=== PATIENT | male | born 1950 | race Caucasian/White ===

== ENCOUNTER 2017-03-06 19:47 | Emergency (ER) | payer MEDICARE ==
[~2017-03-06] VITALS: Ht 177.8 cm; Wt 72.7 kg
[~2017-03-06 19:47] MED LIST: ACET1TAB12 PO; ALPR.25T PO; BUPR200T2 PO; BUSP10TA2 PO; CHOL400T41 PO; GLUC-125 PO; HYDR-4003 PO; MULT-892 PO; PROM25TA14 PO; [UNRECOGNIZED DRUG - OTHER] PO
[2017-03-06 19:50] VITALS: BP 112/75; PULSE 72; RESP 17; O2SAT 99
[2017-03-06 20:43] LABS: BASOPHILS % (AUTO) 0.3 % (0-3); EOSINOPHILS % (AUTO) 1.9 % (0-5); MONOCYTES % (AUTO) 11.9 % (4-12); Mean Corpuscular Hemoglobin 31.4 pg (27.0-35.0); Mean Corpuscular Volume 92.2 fL (81-100); NEUTROPHILS % (AUTO) 75.6 % (40-74); Platelet Count 156 bil/L (150-400)
[2017-03-06] MEDS ORDERED: Iohexol 300 mg/mL 30 mL Inj PO ONE (21:15)
[2017-03-06 21:17] LABS: Magnesium 2.1 mg/dL (1.6-2.6)
--- NOTE | 2017-03-06 21:30 | ED.REPORT ---
HPI-Abd Pain M 40 and Over Date of Service Mar 06, 2017 ED Provider: Dr. Richardson Pt is a 66 year old male with a hx of kidney stones presenting to the ED from complaining of intermittent sharp RLQ pain onset last night. Associated symptoms include nausea, subjective fever, chills, back pain (onset a couple weeks ago) and a decreased appetite. Denies any testicular pain, productive cough, or diaphoresis. He was sent for possible appendicitis. Denies any hx of abdominal surgery. Nursing Notes Stated Complaint: POSS APPENDICITIS Chief Complaint: Male Abdominal Pain Nursing Notes Reviewed: Yes Allergies: Coded Allergies: escitalopram (Verified Adverse Reaction, Severe, 03/06/17) dizziness per h&p Scheduled Acetaminophen/Cod-Expunged Drug, Do Not Renew (Tylenol/Codeine #3-Expunged Drug , Do Not Sandip) 1 Ea Tablet 1-2 TAB PO Q4HP Alprazolam-Expunged Drug, Do Not Renew! (Alprazolam-Expunged Drug, Do Not Renew! ) 0.25 Mg Tablet 0.25 MG PO TIDP Bupropion-Expunged Drug, Do Not Renew! (Bupropion SR-Expunged Drug, Do Not Renew !) 200 Mg Tablet.sa 200 MG PO DAILY Buspirone (Buspirone) 10 Mg Tablet 10 MG PO BID CHOLECALCIFEROL-Expunged Drug, Do Not Renew! (VITAMIN D-Expunged Drug, Do Not Renew!) 400 Unit Tablet 1,000 UNIT PO DAILY Gluc/Julián-Msm#3/Justino/Bosw/Bor (Glucosamine Chondroitin Sftgl) 1 Each Capsule 1 EACH PO DAILY Multivitamin (Daily Value) 1 Each Tablet 1 EACH PO DAILY Scheduled PRN Acetaminophen/Codeine 300-30mg (Tylenol/Codeine #3) 1 Each Tablet 1-2 TABLET PO Q4H PRN PRN Pain Acetaminophen/Codeine 300-30mg (Tylenol/Codeine #3) 1 Each Tablet 1-2 TABLET PO Q4H PRN PRN Pain Hydrocodone-Acetaminophen 5-325 mg (Hydrocodone-Acetaminophen 5-325 mg) 1 Each Tablet 1-2 TABLET PO Q4H PRN PRN For Pain Promethazine (Promethazine) 25 Mg Tablet 25 MG PO Q6H PRN PRN nausea or headache General Time Seen by MD: 21:29 Chief Complaint Abdominal pain Hx Obtained From: Patient Arrived By: Walk-in Sudden in Onset?: Yes Onset Occurred: Yesterday Symptom Duration: Intermittent Progression since Onset: Intermittent Location: : RLQ Quality: Painful, Sharp Severity: Current: Moderate Severity: Maximum: Severe Recent Healthcare: No recent hospitalization, Recent doctor visit Similar Sx Previous: No Past Medical History Past Medical History Notes: Last ED Visit for migraine 06/07/16 Past Medical History Infrequent migraines about every 2 months Anxiety Depression Kidney stones Past Surgical History Lithotripsy for kidney stone Prostate Bladder Paratyroidectomy Family History noncontributory Smoking History Never Smoker Social History Alcohol Use: Denies alcohol use Drug Use: Denies drug use Other Social History: Local resident Ambulatory Status Independent Review of Systems Constitutional: Reports: Chills, Fever Respiratory: Denies: Non-productive cough GI: Reports: Abdominal pain, Nausea, Denies: Vomiting Male: Denies Testicular pain Musculoskeletal: Reports: Back pain Complete sys rev & neg: except as marked. Skin: Denies Diaphoresis Physical Exam Initial Vital Signs Vital Signs (First) Date Time Temp Pulse Resp B/P Pulse Ox O2 Delivery O2 Flow Rate FiO2 03/06/17 19:50 36.4 72 17 112/75 99 Room Air Initial VS: Reviewed Head / Eyes: Atraumatic, Normocephalic, PERRL ENT: Mucous membranes moist, Conjunctiva normal, No scleral icterus Neck: Supple, Non-tender, Full range of motion Extremities: Vascular intact, Neuro intact, No swelling, No tenderness Skin: Warm, Dry, No cyanosis Neurologic: Alert, Oriented, Nonfocal Psychiatric: Mood/affect normal, Behavior normal, Normal thought content General/Constitutional: Awake, Alert, No acute distress, Well appearing Respiratory / Chest: Breath sounds NL, Breath sounds = bilat, No respiratory distress, No rales, No rhonchi, No wheezing Cardiovascular: Heart rate NL, Regular rhythm, Heart sounds NL, Peripheral circulation NL Abdomen: Atraumatic, Soft, Non-tender, No hernia Back: Atraumatic, Full range of motion Right flank tenderness Interpretation & Diagnostics Interpretation & Diagnostics: US APPENDIX: CONCLUSION: No ultrasound evidence of appendicitis. The appendix was not identified. Normal apearing right kidney. Lab Results Interpretation Result Diagram: 03/06/17203403/06/172034 Test 03/06/17 20:35 03/06/17 22:03 White Blood Count 5.9th/mm3 (3.8-10.1) Red Blood Count 5.23mil/mm3 (4.40-5.80) Hemoglobin 16.4g/dL (13.8-17.2) Hematocrit 48.2% (41.0-50.0) Mean Corpuscular Volume 92.2fL (81-100) Mean Corpuscular Hemoglobin 31.4pg (27.0-35.0) Mean Corpuscular Hemoglobin Concent 34.0% (32.0-37.0) Red Cell Distribution Width 12.9% (12.3-15.4) Platelet Count 156bil/L (150-400) Neutrophils (%) (Auto) 75.6% (40-74) Lymphocytes (%) (Auto) 10.1% (14-46) Monocytes (%) (Auto) 11.9% (4-12) Eosinophils (%) (Auto) 1.9% (0-5) Basophils (%) (Auto) 0.3% (0-3) Sodium Level 136mEq/L (134-144) Potassium Level 4.8mEq/L (3.5-5.2) Chloride Level 100mEq/L (97-108) Carbon Dioxide Level 23mmol/L (18-29) Blood Urea Nitrogen 18mg/dL (8-27) Creatinine 0.95mg/dL (0.76-1.27) Estimat Glomerular Filtration Rate 85mL/min (>59) Glucose Level 115mg/dL (60-99) Calcium Level 9.0mg/dL (8.5-10.1) Magnesium Level 2.1mg/dL (1.6-2.6) Total Bilirubin 0.5mg/dL (0.0-1.2) Aspartate Amino Transf (AST/SGOT) 30U/L (0-50) Alanine Aminotransferase (ALT/SGPT) 33U/L (0-44) Alkaline Phosphatase 81U/L (25-160) Total Protein 6.9g/dL (6.4-8.4) Albumin 4.1g/dL (3.4-5.0) Lipase 25U/L (13-60) Hold Rosen Top Tube Received (Received) Urine Color Straw (YELLOW) Urine Appearance Clear (CLEAR,HAZY) Urine pH 6.0 (5.0-8.0) Urine Specific [place] 1.009 (1.003-1.035) Urine Protein Negativemg/dL (NEG,TRACE) Urine Glucose (UA) Negativemg/dL (NEGATIVE) Urine Ketones Negativemg/dL (NEGATIVE) Urine Occult Blood Small (NEGATIVE) Urine Nitrite Negative (NEGATIVE) Urine Bilirubin Negative (NEGATIVE) Urine Urobilinogen Normalmg/dL (NORMAL) Urine Leukocyte Esterase Negative (NEGATIVE) Urine RBC 3-10/hpf (0-2) Urine WBC 0-5/hpf (0-5) Urine Epithelial Cells Occasional/hpf (NONE-MOD) Urine Crystals None seen (NONE SEEN) Urine Bacteria Few/hpf (NONE-FEW) Urine Hyaline Casts None/lpf (NONE) Urine Granular Casts None seen (NONE SEEN) Urine Waxy Casts None seen (NONE SEEN) Urine Red Blood Cell Casts None seen (NONE SEEN) Urine White Blood Cell Casts None seen (NONE SEEN) Urine Mucus Present (None Seen) Urine Trichomonas None seen (NONE SEEN) Urine Yeast None (NONE SEEN) Urinalysis Comment None Urine Culture Reflexed Not indicated Re-Eval/Medical Decision Med Decision/Clinical Course 66-year-old generally good health presents with flank pain. He has a history of kidney stones but does not feel this pain is particularly similar. He was sent with a concern for appendicitis, but he has a completely benign exam, his pain is resolved essentially by the time of arrival here, and he has no evidence of hydronephrosis or free fluid on the ultrasound. As he has no symptoms, normal white count, there is no indication for CT imaging at this time. He is discharged in stable condition for follow-up with PCP. Suspect the possibility of constipation, and I suggested to him that a single dose of milk of magnesia might be helpful in resolving his intermittent crampy symptoms. His urine is completely unremarkable to this point with no evidence of UTI. Time of Eval: 00:08 Patient Status: Condition improved Re-Evaluation/Progress Note: Discussed ultrasound results and plan for discharge. Pt understands and agrees with plan. Counseled Regarding: Diagnosis, Lab results, Need for follow-up, When/why to return to ED Discharge & Departure Primary Impression: Abdominal pain Abdominal location: right lower quadrant Qualified Code: R10.31 - Right lower quadrant pain Disposition: Home Vital Signs - All Vital Signs Date Time Temp Pulse Resp B/P Pulse Ox O2 Delivery O2 Flow Rate FiO2 03/06/17 22:10 36.6 74 138/79 99 Room Air 03/06/17 19:50 36.4 72 17 112/75 99 Room Air )( All Prior VS Reviewed: Yes Condition: Improved Patient Instructions: Acute Abdominal Pain (ED) Additional Instructions: There is no evidence for appendicitis at this time. Your ultrasound showed no free fluid, no obviously enlarged appendix, and normal appearing kidney. With abdominal pain in general, it is important to follow day by day. If this is resolving, then no further evaluation is necessary. If it returns and particularly if it stays, you may need to be reevaluated with blood lab and with a CAT scan. Start with a light liquid diet and then advance as tolerated. Return here promptly if you develop high fever, worsening pain, intractable vomiting, or other new symptoms of concern. Referrals: Neptali Mancia MD (PCP) Scribe Attestation Portions of this note were transcribed by Paula Cash. I, Dr. Richardson personally performed the history, physical exam and medical decision-making; I reviewed and confirmed the accuracy of the information in the transcribed note. Signed by: Corey Gomez, 03/07/2017 at 0223. copies to: Neptali Mancia MD, Christopher W MD Mar 06, 2017 21:30 PAULA CASH Mar 06, 2017 21:31
[2017-03-06 22:10] VITALS: BP 138/79; PULSE 74; O2SAT 99
[2017-03-06 23:00] LABS: APPEARANCE,URINE CLEAR (CLEAR,HAZY); COLOR,URINE STRAW (YELLOW)
[2017-03-06 23:01] LABS: OCCULT BLOOD,URINE SMALL (NEGATIVE); UROBILINOGEN,URINE NORMAL (NORMAL)
--- NOTE | 2017-03-07 10:19 | DRSVH ---
PROCEDURE: US ABDOMEN, LIMITED ([id number]) INDICATIONS: poss rt hydro, referred for possible appy TECHNIQUE: Real-time focused scanning was performed of the abdomen, with image documentation. COMPARISON: None. FINDINGS: Limited evaluation of the right lower quadrant demonstrates no abnormalities. The appendi x is not clearly identified sonographically. No abnormal fluid collections or masses seen. Grossly normal appearance of the right kidney and no hydronephrosis is seen. IMPRESSION: 1. Appendix is not visualized and cannot be evaluated. Although no secondary signs for appendicitis is seen, appendicitis cannot be excluded. If indicated CT could be performed for further assessment. 2. Normal appearance the right kidney. Note: These findings are concordant with the preliminary interpretation. Dictated by: Luis Knight RR Interpreted: Steven Jones MD on 03/07/2017 at 10:15 Transcribed by: BARTOLOME on 03/07/2017 at 10:17 Approved by: Steven Jones M.D. on 03/07/2017 at 12:08
== END 2017-03-07 00:32 | disposition home or self-care (01) ==
LOC: SED 19:47
DX: R10.31 Right lower quadrant pain (principal); R50.9 Fever, unspecified; R11.0 Nausea; R63.0 Anorexia; M54.9 Dorsalgia, unspecified; F41.8 Other specified anxiety disorders; G43.909 Migraine, unspecified, not intractable, without status migrainosus; Z87.442 Personal history of urinary calculi; Z98.890 Other specified postprocedural states; Z88.8 Allergy status to other drugs, medicaments and biological substances

== ENCOUNTER 2017-04-05 07:13 | Day surgery (SDC) | payer MEDICARE ==
[~2017-04-05] VITALS: Ht 177.8 cm; Wt 72.6 kg
[~2017-04-05 07:13] MED LIST changes: +ALPH300T2 PO; -ALPR.25T PO; +ALPR0.5T8 PO; +BUPR100T7 PO; -BUPR200T2 PO; -BUSP10TA2 PO; +CALC-243 PO; +CHOL100045 PO; -CHOL400T41 PO; +DOXA4TAB2 PO; -GLUC-125 PO; -HYDR-4003 PO; +IBUP200C PO; +LOPE-147 PO; +MULT-1018 PO; -MULT-892 PO; +OMEP20CA11 PO; +ONDA-54 PO; -PROM25TA14 PO; +PROP60CA2 PO; +RIZA10TA23 PO; +Sodium Chloride LOK Flush 10 mL Syringe IV PRN; -[UNRECOGNIZED DRUG - OTHER] PO; +fentaNYL-PF 50 mCg/mL 2 mL Inj IVPUSH PRN
[2017-04-05] MEDS ORDERED: ALEN70TA2 PO (07:47)
[2017-04-05] MEDS ORDERED: ESZO2TAB38 PO (07:47)
[2017-04-05 07:52] VITALS: BP 114/67; PULSE 63; RESP 16; O2SAT 97
[2017-04-05] MEDS: 0.9% Sodium Chloride 1,000 ML IV SCH ×3 (07:52→08:19)
[2017-04-05 08:24] VITALS: BP 107/67; PULSE 66; RESP 10; O2SAT 97
[2017-04-05 08:33] VITALS: BP 104/66; PULSE 64; RESP 12; O2SAT 96
[2017-04-05 08:36] VITALS: BP 111/70; PULSE 66; RESP 12; O2SAT 98
--- NOTE | 2017-04-05 09:13 | ENDO ---
[address] [address] ENDOSCOPY PROCEDURE PATIENT: DARION BROWNE : 1950 MR#: [id number] ADMIT: 04/05/2017 JOB ID: [id number] DATE: 04/05/2017 PRIMARY PROVIDER: Neptali Mancia M.D. PROCEDURE: Esophagogastroduodenoscopy with biopsies. INDICATIONS: A 66-year-old male with 10 years of reflux symptoms and discomfort with swallowing. In the last month or so, he has had increased challenges with specifically food-related solid item dysphagia. EGD is therefore pursued. EQUIPMENT: GIF-H180-J. SEDATION: 3 mg Versed, 75 mcg fentanyl. COMPLICATIONS: None identified. PROCEDURE INFORMATION: After the risks and benefits were explained, written and verbal informed consent was obtained. The patient was brought into the endoscopy suite and placed into the left lateral decubitus position. Sedation was achieved using the above-stated medications with the addition of oxygen via nasal cannula. The scope was introduced into the mouth through the bite block, and advanced under direct visualization to the level of the second portion of the duodenum. The scope was slowly withdrawn to carefully examine the mucosa for any defects or lesions. Retroflexed views were accomplished in the stomach. The stomach was decompressed, the scope removed from the patient who tolerated the procedure well. FINDINGS: 1. Duodenum: The corner from D1 into D2 was quite sharp and somewhat challenging to navigate, but I did not appreciate any stricture, mass lesion or ulceration. Otherwise mucosa was fairly unremarkable through the second portion. 2. Stomach: The patient had scattered erosive features in the stomach. I did not appreciate any outlet obstruction. No ulcers. No mass lesions. Random biopsy was taken for exclusion of Helicobacter or other pathology. Otherwise, retroflexed views of the LES disclosed a small sliding hiatal hernia. 3. Esophagus: The squamocolumnar junction correlated with the top of the gastric folds. The GEJ was at 41 cm from the incisors. I did not appreciate any stricturing. No mass lesion. I did not see a Schatzki's ring. No sign of any active inflammation. This is a well- demarcated, normal-appearing Z-line. Photographs were taken. Subtle sliding hiatal hernia. I did not appreciate any other abnormality throughout the esophagus, and we therefore elected to take a biopsy from the mid esophagus to exclude eosinophilic disease. ENDOSCOPIC DIAGNOSES: 1. Visually normal-appearing esophagus. 2. Erosive gastropathy. 3. Subtle sliding hiatal hernia. RECOMMENDATIONS: 1. Await histopathology. 2. If Helicobacter is found, it will need to be eradicated with standard triple therapy. 3. If there is no evidence of eosinophilic disease, then I would recommend a 24 hour pH off meds, and a manometry.
--- NOTE | 2017-04-10 16:11 | PATH ---
SURGICAL PATHOLOGY Attending Physician:Antonette Pacheco CASE STATUS: Signed Out PATIENT NAME: DARION BROWNE JR PID: [id number] : 1950 DATE COLLECTED:04/05/2017 19:31 SPECIMEN: 1: Gastric, Biopsy 2: Esophagus, Biopsy CLINICAL HISTORY: 1). GASTRIC BIOPSY AND RULE OUT H PYLORI 2). MID ESOPHAGUS BIOPSY FINAL DIAGNOSIS: 1. Stomach, Biopsy: Gastric body mucosa with no diagnostic abnormality. Helicobacter organisms not identified. Negative for intestinal metaplasia, dysplasia or malignancy. 2. Mid Esophagus, Biopsy: Squamous epithelium with no diagnostic abnormality. Intraepithelial eosinophils are not increased. Negative for dysplasia or malignancy. ICD10: R13.10 GROSS DESCRIPTION: The specimen is received in two formalin filled containers labeled with the patient's name. 1). The specimen is labeled "gastric" and consists of a 0.3 x 0.2 x 0.2 CM portion of tissue which is entirely submitted in cassette 1A. 2). The specimen is labeled "mid esophageal" and consists of a 0.1 x 0.1 x 0.1 CM portion of tissue which is entirely submitted in cassette 2A. 04/05/2017SC ICD-9 CODES: CPT CODES: 1: 22229 2: 27743 Electronically Signed Out Franklyn Chavez MD, Ph.D. [facility] Pathology [facility] [address], [place] [address] Technical component performed at [facility], [address] [place] [address] Ave[address], [place], [address]
== END 2017-04-05 23:59 | disposition home or self-care (01) ==
LOC: END 07:13
PROVIDERS: ATTEND Internal Medicine Gastroenterology
DX: K21.9 Gastro-esophageal reflux disease without esophagitis (principal); R13.14 Dysphagia, pharyngoesophageal phase; F41.9 Anxiety disorder, unspecified; N40.1 Benign prostatic hyperplasia with lower urinary tract symptoms; R35.0 Frequency of micturition; Z87.442 Personal history of urinary calculi; K44.9 Diaphragmatic hernia without obstruction or gangrene
CPT/HCPCS: 43239; G0500; J2250; J3010; J7030